=== PATIENT | male | born 1950 | race Caucasian/White ===

== ENCOUNTER 2019-06-03 09:52 | Day surgery (SDC) | payer MEDICARE, BC ==
[2019-06-02 09:43] LABS: BASOPHILS % (AUTO) 0.6 % (0-1); EOSINOPHILS # (AUTO) 0.1 X10'3 (0-0.9); EOSINOPHILS % (AUTO) 0.8 % (0-6); HEMATOCRIT 42.3 % (42.0-52.0); HEMOGLOBIN 14.4 g/dl (14.0-17.9); LYMPHOCYTES # (AUTO) 1.4 X10'3 (1.1-4.8); LYMPHOCYTES % (AUTO) 21.5 % (21-51); MEAN CORPUSCULAR HEMOGLOBIN 30.6 PG (27.0-31.0); MEAN CORPUSCULAR HGB CONC 34.1 g/dL (33.0-36.5); MEAN CORPUSCULAR VOLUME 89.7 FL (78-98); MEAN PLATELET VOLUME 8.3 FL (7.4-10.4); MONOCYTES # (AUTO) 0.5 X10'3 (0-0.9); MONOCYTES % (AUTO) 7.1 % (2-12); NEUTROPHILS # (AUTO) 4.6 X10'3 (1.8-7.7); PLATELET COUNT 281 X10'3 (140-440); RED BLOOD COUNT 4.71 X10'6 (4.70-6.10); RED CELL DISTRIBUTION WIDTH 14.8 % (11.5-14.5); WHITE BLOOD COUNT 6.6 X10'3 (4.5-11.0)
[2019-06-02 09:52] LABS: PARTIAL THROMBOPLASTIN TIME 28 SECONDS (22-32)
[2019-06-02 10:01] LABS: ALANINE AMINOTRANSFERASE 30 U/L (12-78); ALBUMIN 3.8 G/DL (3.4-5.0); ALKALINE PHOSPHATASE 84 IU/L (46-116); ANION GAP 8 (8-16); ASPARTATE AMINO TRANSFERASE 25 U/L (10-37); BILIRUBIN,TOTAL 0.5 MG/DL (0.1-1.0); BLOOD UREA NITROGEN 20 MG/DL (7-18); CALCIUM 9.7 MG/DL (8.5-10.1); CHLORIDE 105 MMOL/L (99-107); CREATININE 1.05 MG/DL (0.60-1.10); GLUCOSE 93 MG/DL (70-104); POTASSIUM 4.2 MMOL/L (3.5-5.1); SODIUM 140 MMOL/L (135-145); TOTAL CARBON DIOXIDE 27.5 MMOL/L (24-32); TOTAL PROTEIN 7.7 G/DL (6.4-8.2); eGFR 70 ML/MIN
[2019-06-03] VITALS (14 sets, daily range): BP systolic 123–143; BP diastolic 77–93
[~2019-06-03] VITALS: Ht 195.6 cm; Wt 117.3 kg
[2019-06-03] MEDS ORDERED: normal saline 1,000 ML IV SCH (10:10)
[2019-06-03] MEDS ORDERED: diphenhydrAMINE 25mg capsule PO PRN (10:10)
[2019-06-03] MEDS ORDERED: LORazepam 0.5 MG tablet PO PRN (10:10)
[2019-06-03] MEDS ORDERED: nitroGLYCERIN 0.4mg SUBLingual tab SL PRN (10:10)
[2019-06-03] MEDS ORDERED: iohexol 350 MG/ML 50ML vial IV ONE ×2 (11:44→12:28)
[2019-06-03] MEDS ORDERED: LIDOcaine 1% (10mg/ml)w/preservative injection 20ml MDV ONE (11:44)
[2019-06-03] MEDS ORDERED: midazolam 2 mg/2 ml injection ONE ×2 (11:44→12:16)
[2019-06-03] MEDS ORDERED: iohexol 350MG/ML 100ml bottle IV ONE (11:44)
[2019-06-03] MEDS ORDERED: fentaNYL/PF 50MCG/1 ML 2ML syringe ONE ×2 (11:44→12:19)
[2019-06-03] MEDS ORDERED: LISI1TAB28 PO (12:16)
[2019-06-03] MEDS ORDERED: IBUP200C5 PO (12:16)
[2019-06-03] MEDS ORDERED: ondansetron/PF 4mg/2ml inj IV PRN (15:00)
[2019-06-03] MEDS ORDERED: OXAZEpam 15mg capsule PO PRN (15:00)
[2019-06-03] MEDS ORDERED: normal saline 1000ml 1,000 ML IV SCH (15:00)
[2019-06-03] MEDS ORDERED: HYDROcodone/acetaminophen 10/325mg tab PO PRN (15:00)
[2019-06-03] MEDS ORDERED: proCHLORperazine 10 MG/2 ml inj IV PRN (15:00)
[2019-06-03] MEDS ORDERED: HYDROcodone/acetaminophen 5mg/325mg tablet PO PRN (15:00)
== END 2019-06-03 19:00 | disposition home or self-care (01) ==
LOC: SSTAY O 09:52
PROVIDERS: ATTEND Internal Medicine Cardiovascular Disease
DX: R94.39 Abnormal result of other cardiovascular function study (principal); I25.10 Atherosclerotic heart disease of native coronary artery without angina pectoris; I42.9 Cardiomyopathy, unspecified; M19.90 Unspecified osteoarthritis, unspecified site; I10 Essential (primary) hypertension; G62.9 Polyneuropathy, unspecified; G47.33 Obstructive sleep apnea (adult) (pediatric); E78.5 Hyperlipidemia, unspecified; Z79.899 Other long term (current) drug therapy
CPT/HCPCS: 36415; 71046; 80053; 85025; 85610; 85730; 93458; 99152; 99153; C1769; J1644; J2001; J2250; J3010; J7030; Q0163; Q9967; A6258; C1760